=== PATIENT | male | born 1945 | race Caucasian/White ===

== ENCOUNTER 2020-11-10 08:45 | Day surgery (SDC) | payer MEDICARE ==
[~2020-11-10] VITALS: Ht 185.4 cm; Wt 89.5 kg
[~2020-11-10 08:45] MED LIST: ACETAMINOPHEN 500 MG TABLET PO PRN; BUPIVACAINE-EPI 0.25%-1:200000 MPF 30 ML VIAL. ONE; DOCU50CA9 PO; HYDROmorphone 2 MG/ML VIAL IVP PRN; IV RINGERS,LACTATED 1000ML 1,000 ML IV SCH; MULT-246 PO; OXYC1TAB15 PO; PROCHLORPERAZINE 10 MG/2 ML VIAL. IVP PRN; SILD50TA PO; fentaNYL PF VIAL 100 MCG/2 ML VIAL IVP PRN
[2020-11-10] MEDS ORDERED: DEXAMETHASONE SOD PHOS 4 MG/ML VIAL ONE (10:07)
[2020-11-10] MEDS ORDERED: PHENYLEPHRINE 10 MG/ML VIAL. ONE (10:07)
[2020-11-10] MEDS ORDERED: LIDOCAINE 2% PF 5 ML VIAL. ONE (10:07)
[2020-11-10] MEDS ORDERED: PROPOFOL 10 MG/ML (20ML) VIAL. IV ONE ×2 (10:07→10:32)
[2020-11-10] MEDS ORDERED: ROCURONIUM 50 MG/5 ML VIAL. ONE (10:08)
[2020-11-10] MEDS ORDERED: NEOSTIGMINE METHYLSULFATE 5 MG/5 ML SYRINGE. ONE (10:09)
[2020-11-10] MEDS ORDERED: fentaNYL PF VIAL 100 MCG/2 ML VIAL ONE ×2 (10:09→13:30)
[2020-11-10] MEDS ORDERED: GLYCOPYRROLATE 1 MG/5 ML VIAL. ONE (10:10)
[2020-11-10] MEDS ORDERED: MINERAL OIL for SURGERY 10 ML VIAL. MC ONE (11:23)
[2020-11-10] MEDS ORDERED: PHENYLEPHRINE in 0.9% NACL PF 1 MG/10 ML SYRINGE. IV ONE (12:12)
[2020-11-10] MEDS ORDERED: ePHEDrine PF IN SALINE 50 MG/10 ML SYRINGE. IV ONE (12:16)
--- NOTE | 2020-11-10 13:15 | PDOC4 ---
Operative Note Operative Note Date: November 102020 at 1312 Preoperative diagnosis left inguinal hernia Postoperative diagnosis: Same Procedure: Robotic assisted laparoscopic left inguinal hernia repair with mesh Surgeon: Cristofer Specimen: None Dictation: Patient is a 75-year-old male with complaints of a painful bulge in his left groin. Procedure of robotic assisted laparoscopic left inguinal hernia repair with mesh was explained to the patient detail risk benefits were also discussed including bleeding infection injury to intra-abdominal contents possible necessitating further open operations alternatives to this procedure also discussed with the patient who seemed to understand and gave a verbal and written consent to have the procedure performed. Patient was taken to the operating room placed supine position general anesthesia was initiated once patient was sleeping intubated he was placed in low lithotomy position and his abdomen was prepped and draped usual sterile fashion using ChloraPrep. An area just above his umbilicus was injected with quarter percent Marcaine with epinephrine incision was made 11 blade scalpel and a varies needle was placed within the abdomen creating pneumoperitoneum once this was complete 8 mm da Vicki port was placed and da Vicki camera's placed within the abdomen which was inspected was noted he had a large direct inguinal hernia on the left side previous repair was noted on the right. 8 mm ventral port was placed in left midabdomen and an 8 mm da Vicki port was placed in the right midabdomen all under direct visualization the da Vicki robot was brought and docked all port sites surgeon went to the robotic console using a grasper and Endo Derick scissors the peritoneum on the left side was incised and a window was propagated inferiorly reducing the hernia sac and contents. A large Bard 3D max mesh was then placed over the hernia defect and the peritoneum closed with a running 2 OV lock absorbable suture. The da Vicki robot was undocked from all port sites all ports were removed pneumoperitoneum was reduced all port sites were closed with 4-0 subcuticular Monocryl Mastisol Steri-Strips and island dressings were applied. Patient was awakened and extubated in the operating room taken to recovery in stable condition all sponge instrument needle counts listed as correct estimated blood loss 5 mL. MARINA ALCANTAR MD Nov 10, 2020 13:15
[2020-11-10] MEDS ORDERED: OXYC-325 PO (13:17)
--- NOTE | 2020-11-10 13:18 | DISCH ---
DISCHARGE INSTRUCTIONS Condition on Discharge Condition on Discharge: Stable Activity After Discharge Activity Instructions for Disc: Avoid exertion Other activity instructions: No lifting more than 20 pounds for 2 weeks Driving Instructions after Dis: Do not drive Diet after Discharge Diet after Discharge: Regular Wound Incision Care Other wound/incision instructi: May shower in 24 hours Contacting the after DC Call your doctor for: If your condition worsens Follow-Up Follow up with: Follow-up with Dr. Alcantar in 2 weeks MARINA ALCANTAR MD Nov 10, 2020 13:18
[2020-11-10] MEDS ORDERED: MORPHINE SULFATE 2 MG/ML INJ. ONE (13:21)
[2020-11-10] MEDS: MORPHINE SULFATE 2 MG/ML INJ. IVP PRN ×2 (13:24→13:34)
[2020-11-10] MEDS: fentaNYL PF VIAL 100 MCG/2 ML VIAL IVP PRN ×2 (13:33→13:47)
[2020-11-10] MEDS ORDERED: oxyCODONE/APAP 5/325 1 TAB TABLET PO ONE (13:45)
[2020-11-10 14:01] VITALS: BP 123/80
== END 2020-11-10 14:30 | disposition home or self-care (01) ==
LOC: SURG 08:45
PROVIDERS: ATTEND Surgery
DX: K40.90 Unilateral inguinal hernia, without obstruction or gangrene, not specified as recurrent (principal); Z85.828 Personal history of other malignant neoplasm of skin; Z98.890 Other specified postprocedural states
CPT/HCPCS: 49650; A4364; A4930; A6219; C1781; J0690; J1100; J2270; J2370; J2704; J2710; J3010; J3490; A4223; A4657

== ENCOUNTER 2020-11-21 22:00 | Inpatient (IN) | payer MEDICARE ==
[~2020-11-21] VITALS: Ht 185.4 cm; Wt 90.5 kg
[~2020-11-21 22:00] MED LIST changes: -ACETAMINOPHEN 500 MG TABLET PO PRN; -BUPIVACAINE-EPI 0.25%-1:200000 MPF 30 ML VIAL. ONE; -HYDROmorphone 2 MG/ML VIAL IVP PRN; -IV RINGERS,LACTATED 1000ML 1,000 ML IV SCH; +OXYC-325 PO; -PROCHLORPERAZINE 10 MG/2 ML VIAL. IVP PRN; -fentaNYL PF VIAL 100 MCG/2 ML VIAL IVP PRN
[2020-11-21 23:00] VITALS: BP 148/79
[2020-11-21] MEDS ORDERED: ONDANSETRON ODT 4 MG TAB.RAPDIS. PO PRN (23:15)
[2020-11-21] MEDS ORDERED: IV NORMAL SALINE 1000ML BAG 1,000 ML IV SCH (23:30)
--- NOTE | 2020-11-22 02:59 | RAD ---
EXAMINATION: CT abdomen and pelvis without IV contrast. INDICATION:75 years, Male, Jiménez catheter place, no urine output. TECHNIQUE: Axial CT images of the abdomen and pelvis were obtained. Coronal and sagittal reformatted performed. COMPARISON: None. Exposure: One or more of the following individualized dose reduction techniques were utilized for thi s examination: 1. Automated exposure control 2. Adjustment of the mA and/or kV according to patient size 3. Use of iterative reconstruction technique. FINDINGS: LOWER CHEST: There is bilateral pleural effusions with associated subsegmental atelectasis, slightly greater on th e left. A focal hepatic abnormalities. Gallbladder is mildly distended without evidence of acute inflammatory process. The spleen, adrenals, and pancreas are unremarkable. There is moderate hydronephrosis bilaterally with punctate nonobstructing bilateral nephrolithiasis. There are variable sized water attenuating cortical cysts bilaterally. There is a moderate amount of predominantly posterior retroperitoneal simple fluid which also layers along the left pericolic gutte r and is contiguous with a segment of the proximal left ureter as demonstrated on axial image 38/2, t his is suspicious for ureteral injury and/or calyceal rupture. The remainder of the ureters are shay l in course and caliber with no definite ureteral calculi. The stomach small and large bowel demonstrate no evidence of obstruction or acute inflammatory proces s. Sigmoid diverticulosis without evidence of diverticulitis. No free intra-abdominal air. The append ix is not definitely visualized. The urinary bladder is markedly distended with a Jiménez catheter terminating at the area of the prosta tic urethra. The prostate itself appears enlarged and bulges into the bladder base there is likely ec hogenic foci of gas within the bladder. There is a large amount of simple fluid within the left inguinal canal and scrotum. There is also a l arge right hydrocele. The anterior abdominal wall is intact. There is a asymmetric amount of extensive subcutaneous edema m ost pronounced along the left flank/groin. There are multiple prominent inguinal lymph nodes likely r eactive. No acute osseous abnormalities IMPRESSION: 1. Malpositioned Jiménez catheter terminating in the prostatic urethra recommend advancing at least 2 c m. 2. Moderate to large amount of simple appearing left retroperitoneal fluid concerning for ureteral or calyceal rupture. Recommend further evaluation with CT urogram when renal function permits. 3. Moderate bilateral hydronephrosis, as above. 4. Additional chronic/incidental findings as detailed above. These findings were discussed with the charge nurse Genna Starkey at 2:45 AM on 11/22/[address] Deluna idt. Electronically signed by: Bud Cheng DO (11/22/2020 2:57 AM) [facility]
[2020-11-22 03:00] VITALS: BP 128/77
[2020-11-22] MEDS ORDERED: fentaNYL PF VIAL 100 MCG/2 ML VIAL IVP PRN (03:00)
--- NOTE | 2020-11-22 03:24 | NUR ---
This nurse called [facility] and [facility] to attempt to locate an inpatient bed for urology services for this patient. Both hospitals report that they are currently full and are not accepting transfers at this time. This nurse called [facility] and they are reviewing their bed availability to see if they can accept this patient. Primary nurse and Dr. Paul notified.
--- NOTE | 2020-11-22 05:15 | NUR ---
This Nurse called [facility] to give report. Report was given, heart monitor was taken off, and IV was left. Pt was stable when leaving unit.
--- NOTE | 2020-11-24 12:32 | SSS ---
ADMIT DATE: 11/21/2020 It is important to note that I have never seen this patient before in person. HISTORY OF PRESENT ILLNESS: The patient is a 75-year-old male patient who apparently presented to the Emergency Room of [facility] with abdominal pain. He apparently was seen about 5 days ago for constipation and he is postoperative day #11 from an abdominal hernia repair at [place], had issues even prior to that surgery with constipation. He reports increased sedentary time and pain, medication caused his constipation to worsen. States he continued to use Metamucil and magnesium citrate as prescribed with mild relief as he states he had a bowel movement about 24 hours after that emergency room visit. Nonetheless, the patient presented to his primary care physician's office on the day of evaluation for followup and continued to complain of generalized abdominal pain. States it is diffuse and nonfocal, palpation makes it worse, nothing known makes it better. He reports this has been constant. States that he has not had bowel movement in the last 72 hours, but is still passing minimal gas. Denied any fever, blurring of vision, chest pain, ripping or tearing sensation on the torso, shortness of breath, nausea, vomiting or diarrhea, urinary symptoms. He apparently was extensively investigated in the Emergency Room and has had lab work done which showed that his white cell count was high at 16,500 with normal hemoglobin, hematocrit and platelets. His chemistry showed that his sodium was low at 122, phosphorus was 5.3, chloride was also low at 85. His BUN was 107 and creatinine was 12.7. He has had a KUB, which showed that moderate volume of gas and stool within the colon may indicate mild constipation. No small bowel obstruction is evident. There appears to be small pleural effusions along the lung bases as well as left lower lobe pulmonary edema or interstitial infiltrate. Given the acute onset of acute renal failure as the last known creatinine available for comparison was on 09/09/2013. At that time, his serum creatinine was 1, unfortunately there is no other values to compare with. The patient was transferred to [facility] to consult the assistant corporate secretary as he might require dialysis. At that time, I spoke with the ER physician with a plan to put a Jiménez catheter in and start him on IV fluid hoping that will solve the problem by relieving the obstruction, but apparently either no attempt was made to put a Jiménez catheter in or an attempt was made but has failed. He did receive 2 liters of normal saline and the ER physician stated that he will place a Jiménez catheter, but that was not the case as he came here without any Jiménez catheter. The patient was transferred to [facility] and on arrival here, multiple attempts were made to place a Jiménez catheter has failed including attempts by nursing staff from ICU. At that time, I actually asked the nursing staff to arrange for him to have a CT scan of the abdomen and pelvis without contrast given his impaired kidney function and in fact, the CT scan showed that he has a malpositioned Jiménez catheter terminating in the prostatic urethra and recommend advancing it at least 2 cm. Has moderate to large amount of simple appearing left retroperitoneal fluid concerning for ureteral or calyceal rupture and recommend further evaluation with CT urogram when renal function permits. He has moderate bilateral hydronephrosis as above and additional chronic incidental findings as detailed above. He has focal hepatic abnormalities. Gallbladder is mildly distended without evidence of acute inflammatory process. The spleen, adrenal and pancreas are unremarkable. There is moderate hydronephrosis bilaterally with punctate nonobstructing bilateral nephrolithiasis. There are variable sized water attenuating cortical cysts bilaterally. There is a moderate amount of predominantly posterior retroperitoneal simple fluid, which also layers along the left pericolic gutter in contiguous with a segment of the proximal left ureter as demonstrated in one of the images. This is suspicious for ureteral injury and/or calyceal rupture. The remainder of the ureters are normal in course and caliber with no definite ureteral calculi. The stomach, small and large bowel demonstrates no evidence of obstruction or acute inflammatory process. Sigmoid diverticulosis without evidence of diverticulitis. No free intra-abdominal air. The appendix is not definitely visualized. The urinary bladder is markedly distended with a Jiménez catheter terminating at the area of the prostatic urethra. The prostate itself appears to be enlarged and bulges into the bladder base. There is likely echogenic foci of gas within the bladder. There is large amount of simple fluid within the left inguinal canal and scrotum. There is also a large right hydrocele. The anterior abdominal wall is intact. There is a symmetric amount of extensive subcutaneous edema, most pronounced along the left flank area. There are multiple prominent inguinal lymph nodes, likely reactive and given the inability to advance a Jiménez catheter into the bladder, I did consult the surgeon. Unfortunately, the surgeon said that this is not within their practice and therefore we made an attempt to transfer him to the hospital where there is Urology Services and I spoke with the [facility] [place] later and eventually he was accepted at [facility] in [place]. I did speak with the nursing steel pan form placing supervisor as well as the nurse practitioner and the patient was accepted to their Urology Services. PAST MEDICAL HISTORY: Apparently unremarkable. PAST SURGICAL HISTORY: Significant for right inguinal hernia repair in the past. He has also recurrence of his right hydrocele and underwent before hydrocelectomy. FAMILY HISTORY: Noncontributory. SOCIAL HISTORY: Obviously unobtainable as I have never seen the patient by myself. ALLERGIES: He has no known drug allergies. MEDICATIONS: He apparently was on Viagra 50 mg once a day as needed and oxycodone/APAP 5/325 one tablet every 6 hours. PHYSICAL EXAMINATION: GENERAL: By the description or what is written by the nursing staff he seemed to be in no apparent respiratory distress. VITAL SIGNS: His heart rate was 57, blood pressure is 128/77, temperature 97.6, respiratory rate was 16 and oxygen saturation was 93% on 2 liters of oxygen. ASSESSMENT AND PLAN: The patient was transferred to [facility] with diagnosis of acute kidney injury, likely due to benign prostatic hypertrophy and bladder outlet obstruction or he could have acute on chronic kidney injury given bilateral hydronephrosis. Surprisingly, he had had surgery done about a week ago and no labs were done at that time. The only labs available to compare with was done in 2013. [facility] [place] Laura TID: [id number]
== END 2020-11-22 05:10 | disposition short-term general hospital (02) | DRG 694 ==
LOC: 5 SOUTH 22:00
PROVIDERS: ADMIT Internal Medicine; ATTEND Internal Medicine
DX: N13.2 Hydronephrosis with renal and ureteral calculous obstruction (principal); N13.8 Other obstructive and reflux uropathy; N17.9 Acute kidney failure, unspecified; N40.1 Benign prostatic hyperplasia with lower urinary tract symptoms; K57.30 Diverticulosis of large intestine without perforation or abscess without bleeding; K59.00 Constipation, unspecified; N43.3 Hydrocele, unspecified
CPT/HCPCS: 36415; 74176; 83880; J3010; J7030; G0378